=== PATIENT | female | born 1995 | race Caucasian/White ===

== ENCOUNTER 2018-02-13 18:07 | Emergency (ER) | payer SELFPAY ==
--- NOTE | 2018-02-13 19:21 | ULT ---
OB ULTRASOUND: 02/13/18 HISTORY: female with abdominal pain. TECHNIQUE: Multiplanar macias scale and color doppler images were obtained in a transabdominal and transvaginal pe lvic ultrasound. Spectral analysis of the doppler waveforms of the ovaries were performed. FINDINGS: There is a gestational sac within the uterus. This contains a pole with a crown-rump length of 0.74 cm. This estimates the gestational age at 6 weeks, 4 days. A yolk sac is seen. A heart rat e is detected at 122 beats per minute. No free fluid is seen in the pelvis. Both ovaries are normal i n size and appearance and demonstrate normal internal flow. A dominant follicle is seen in the left o vary measuring 2.6 cm in size. IMPRESSION: Single live intrauterine with estimated age of 6 weeks, 4 days. POS: [facility]
== END 2018-02-13 20:55 | disposition left against medical advice (07) ==
LOC: ERS 18:07
DX: O99.89 Other specified diseases and conditions complicating pregnancy, childbirth and the puerperium (principal); R10.32 Left lower quadrant pain; O99.331 Smoking (tobacco) complicating pregnancy, first trimester; Z3A.01 Less than 8 weeks gestation of pregnancy
CPT/HCPCS: 76856

== ENCOUNTER 2018-09-14 15:06 | Inpatient (IN) | payer OTHER ==
[~2018-09-14 15:06] MED LIST: Bupivacaine/Epinephrine 0.25% 30 ML VIAL ONE; Lidocaine 2% MPF 10 ML AMP (For Epidural Use) ONE
[2018-09-14] MEDS: Lactated Ringer's 1,000 ML IV SCH ×2 (15:40→17:19)
[2018-09-14 15:52] VITALS: BMI 30.8
[2018-09-14] MEDS ORDERED: Ibuprofen 800 MG TAB PO PRN (16:04)
[2018-09-14] MEDS ORDERED: Diphenoxylate HCl/Atropine Tablet PO PRN (16:04)
[2018-09-14] MEDS ORDERED: Fentanyl 4 mcg/Bup 0.1% Cadd 100 ML ONE (16:04)
[2018-09-14] MEDS ORDERED: Ondansetron PF 4 MG/2 ML Vial IVP PRN ×4 (16:04→22:24)
[2018-09-14] MEDS ORDERED: Misoprostol 200 MCG TAB PR PRN (16:04)
[2018-09-14] MEDS ORDERED: Butorphanol Tartrate 1 MG/ML VIAL SLOW IVP PRN (16:04)
[2018-09-14] MEDS ORDERED: Lidocaine 1% (PF) 30 ML VIAL SC PRN (16:04)
[2018-09-14] MEDS ORDERED: NS / Oxytocin 40 units/1000ml 1,000 ML IV PRN (16:04)
[2018-09-14] MEDS ORDERED: Carboprost 250 MCG/ML AMP IM PRN (16:04)
[2018-09-14] MEDS ORDERED: Methylergonovine 0.2 MG/ML VIAL IM PRN (16:04)
[2018-09-14] MEDS ORDERED: HYDROcodone/Acetaminophen 5/325 mg Tablet PO PRN (16:04)
[2018-09-14 16:15] LABS: Hemoglobin 14.8 g/dL (12.0-16.0); Mean Corpuscular HGB CONC 33.8 g/dL (32.0-36.0); Mean Corpuscular Hemoglobin 34.8 pg (27.0-31.0); Mean Platelet Volume 10.4 fL (7.4-10.4); Platelet Count 166 thou/uL (130-400); RBC Distribution Width 11.6 % (11.5-14.5); Red Blood Cell (RBC) Count 4.27 mill/uL (4.20-5.40); White Blood Cell (WBC) Count 19.4 thou/uL (4.8-10.8)
[2018-09-14] MEDS ORDERED: NS w/ Oxytocin 10 units 500 ML IV SCH ×2 (16:15)
[2018-09-14] MEDS ORDERED: Ondansetron PF 4 MG/2 ML Vial ONE ×2 (16:18→20:01)
[2018-09-14] MEDS ORDERED: Ketorolac Tromethamine 30 MG/ML VIAL ONE ×2 (16:18→20:01)
[2018-09-14] MEDS ORDERED: Lidocaine 2% MPF 10 ML AMP (For Epidural Use) ONE (16:18)
[2018-09-14] MEDS ORDERED: Dexamethasone 20 MG/5 ML VIAL ONE (16:18)
[2018-09-14] MEDS ORDERED: Naloxone HCl 0.4 mg/ml Vial IVP PRN ×4 (16:47→22:24)
[2018-09-14] MEDS ORDERED: diphenhydrAMINE 50 MG/ML VIAL IVP PRN ×2 (16:47→22:24)
[2018-09-14] MEDS ORDERED: Eucerin (Mineral Oil/Petrolatum,White) 30 gm Jar TOP PRN (16:47)
[2018-09-14] MEDS ORDERED: Acetaminophen 325 MG TAB PO PRN (16:47)
[2018-09-14] MEDS ORDERED: Lactated Ringer's 500 ML IV PRN (16:47)
[2018-09-14] MEDS ORDERED: ePHEDrine/0.9% NaCl/PF SYRINGE 50 mg/10 ml SLOW IVP PRN (16:47)
[2018-09-14] MEDS ORDERED: Promethazine HCl 25 MG/ML VIAL IM PRN ×2 (16:47→22:24)
[2018-09-14 16:51] LABS: HBSAg Index 0.18 S/CO (0-0.99); Hep B Surf Ag Non-Reactive S/CO (NonReactive); Syphilis Antibody Nonreactive (Nonreactive); Syphilis Antibody Index 0.02 S/CO (<1.00 Non-Reactive)
[2018-09-14] MEDS ORDERED: Fentanyl 4 mcg/Bupivacaine 0.1% Cassette 100 ML EPIDURAL SCH (17:00)
[2018-09-14] MEDS ORDERED: Communication Order-Pharmacy FS SCH ×2 (17:00→22:30)
[2018-09-14 17:52] LABS: Creatinine, Urine 362.72 mg/dL (47-110)
[2018-09-14] MEDS ORDERED: CEFAZOLIN 2 GM/50 ML BAG ONE (19:46)
[2018-09-14] MEDS ORDERED: Bicitra 30 ML UDCUP ONE (19:46)
[2018-09-14] MEDS ORDERED: Oxytocin 10 UNITS/ML VIAL ONE (20:01)
[2018-09-14] MEDS ORDERED: Lidocaine 2% 10 ML INJ ONE (20:01)
[2018-09-14] MEDS ORDERED: Dexamethasone 4 mg/ml Vial ONE (20:01)
[2018-09-14] MEDS ORDERED: Midazolam HCl 2 mg/2 ml Vial ONE (20:02)
[2018-09-14] MEDS ORDERED: Fentanyl 100 MCG/2 ML VIAL ONE (20:26)
[2018-09-14] MEDS ORDERED: Morphine PF 1 MG/ML SYR ONE (20:27)
[2018-09-14] MEDS ORDERED: Bupivacaine/Epinephrine 0.5% 10 ML VIAL ONE (20:27)
[2018-09-14] MEDS ORDERED: Bupivacaine PF 0.5% 30 ML VIAL ONE (20:28)
[2018-09-14] MEDS ORDERED: cloNIDine 0.1 MG TAB PO PRN (21:27)
[2018-09-14] MEDS ORDERED: Bisacodyl 10 MG SUPP PR PRN (22:06)
[2018-09-14] MEDS ORDERED: diphenhydrAMINE 25 MG CAP PO PRN (22:06)
[2018-09-14] MEDS ORDERED: Promethazine HCl 25 MG SUPP PR PRN (22:24)
[2018-09-14] MEDS ORDERED: L&D-Morphine 4 MG/ML VIAL SLOW IVP PRN (22:24)
[2018-09-14] MEDS ORDERED: Ketorolac Tromethamine 30 MG/ML VIAL IVP PRN (22:24)
[2018-09-14] MEDS ORDERED: Naloxone HCl 0.4 mg/ml Vial IV PRN (22:24)
[2018-09-14] MEDS ORDERED: HYDROmorphone 2 MG/ML VIAL SLOW IVP PRN (22:24)
[2018-09-14] MEDS ORDERED: Hydrocerin (Eucerin) Cream 120 gm Jar TOP PRN (22:24)
[2018-09-14] MEDS ORDERED: Meperidine HCl/PF 25 MG/ML VIAL SLOW IVP PRN (22:24)
[2018-09-14] MEDS ORDERED: Ondansetron HCl/PF 4 MG/2 ML Vial IVP PRN (22:24)
[2018-09-14] MEDS ORDERED: Ketorolac Tromethamine 30 MG/ML VIAL IVP SCH (22:30)
[2018-09-14] MEDS ORDERED: Docusate Calcium (SURFAK) 240 MG CAP PO SCH (22:30)
[2018-09-14] MEDS ORDERED: Lactated Ringer's 1,000 ML IV SCH (22:30)
[2018-09-14] MEDS ORDERED: Ferrous Sulfate 325 MG TAB PO SCH (22:45)
[2018-09-14] MEDS ORDERED: Morphine 4 MG/ML VIAL SLOW IVP SCH (23:15)
[2018-09-15] MEDS ORDERED: Sodium Chloride 0.9% 10 ML ONE (02:38)
--- NOTE | 2018-09-15 04:13 | DN-2 ---
PROCEDURE NOTE DATE OF PROCEDURE: 09/14/2018 RESIDENT: Luke Smith, PGY-1, PGY-2. ATTENDING SURGEON: Bubba Elizabeth M.D. PROCEDURE: Primary low transverse section. PREOPERATIVE DIAGNOSES: 1. Term intrauterine . 2. History of spontaneous . 3. History of tobacco abuse. 4. Failure to progress. POSTOPERATIVE DIAGNOSES: 1. Term intrauterine . 2. History of spontaneous . 3. History of tobacco abuse. 4. Failure to progress. ANESTHESIA: Spinal. INDICATIONS: The patient is a 23-year-old, G2, P0 female at 38 weeks' gestation, who presented in [facility] and ended up had to go back for as failure to progress as she did not dilate from 8 for over 4 hours. PROCEDURE IN DETAIL: After risks, benefits, and alternatives were explained to the patient, she gave informed consent. Preoperative antibiotics included cefazolin 2 grams IV. The patient was taken to the operating room and spinal anesthesia was initiated. She was placed in a supine position with a left tilt and prepped and draped in the usual sterile fashion. A Pfannenstiel incision was made with a scalpel and carried down to the level of the fascia, which was sharply nicked. The fascial cut wa s extended bilaterally with Willingham scissors. Inferior and superior edges of the cut fascial edges were elevated with Fabricio clamps and the underlying rectus muscles were sharply and bluntly dissected yaneli e. The recti were divided digitally and retracted manually. The peritoneum was entered bluntly and retracted manually. Bladder blade was placed. A low transverse score was made with a scalpel, and t he uterus was entered in the midline with a scalpel. Clear fluid was seen. Hysterotomy was extended manually. The infant was noted to be vertex, but occiput posterior and was easily delivered by fund al pressure. Mouth and nares were bulb suctioned. Cord clamped and cut and grossly normal female in conchita was handed to the awaiting nurse. There was a slight pepito on the left cheek of the infant from entering due to infant being faced up. Cord blood was obtained. Placenta was manually extracted and found to be intact with a 3-vessel cord and will be sent for pathology. The uterus was externalized . , delivered by fundal pressure. Occiput and nuchal cord x1 was noted. intact 3-vessel cord and was sent for pathology. The uterus was externalized and the endometri um was curetted with a dry lap. The bladder blade was replaced, and the uterus was closed with a run marv locking 0 Vicryl. Following this, hemostasis was noted. The abdomen was irrigated with saline and suctioned free of clots. The uterine was internalized and the hysterotomy was again noted to be hemostatic. The peritoneum was closed with 3-0 chromic also before closing the peritoneum, there was noted to be a little bit of a bleed underneath the inferior fascia of the peritoneum. We ended up p utting the use of some cautery, put in a 1-0 chromic suture to sew off the vessel, and in the end, we put some Surgicel on it as well. The fascia was closed with a running nonlocking 0 Vicryl suture, s ubcutaneous tissue was irrigated, and there were no bleeders. The subcutaneous layer was approximate d with 1-0 chromic and then the skin was approximated with reilly and pressure dressing was placed. All counts were correct. Patient tolerated the procedure well and was taken to the recovery room in stable condition. ESTIMATED BLOOD LOSS: 450 mL. COMPLICATIONS: Slight pepito on the left cheek of . SPECIMENS: Cord blood sent to lab for blood type. FINDINGS: Grossly normal female infant with Apgars of 8 and 9. Grossly normal placenta with three-v essel cord discarded. DRAINS: Miller to gravity draining clear urine.
[2018-09-15 06:23] LABS: Hemoglobin 11.4 g/dL (12.0-16.0); Mean Corpuscular HGB CONC 33.1 g/dL (32.0-36.0); Mean Corpuscular Hemoglobin 34.3 pg (27.0-31.0); Mean Platelet Volume 10.7 fL (7.4-10.4); Platelet Count 126 thou/uL (130-400); RBC Distribution Width 11.7 % (11.5-14.5); Red Blood Cell (RBC) Count 3.31 mill/uL (4.20-5.40)
[2018-09-15] MEDS: Ferrous Sulfate 325 MG TAB PO SCH ×2 (08:07→21:10)
[2018-09-15] MEDS: Prenatal Vitamin 1 TAB PO SCH (08:24)
[2018-09-15] MEDS: Docusate Calcium (SURFAK) 240 MG CAP PO SCH ×2 (08:26→21:48)
[2018-09-15] MEDS ORDERED: Ibuprofen 800 MG TAB PO SCH (08:30)
[2018-09-15] MEDS: HYDROcodone/Acetaminophen 5/325 mg Tablet PO PRN ×3 (10:09→18:49)
[2018-09-15] MEDS ORDERED: Meperidine HCl/PF 25 MG/ML VIAL IM PRN (10:30)
[2018-09-15] MEDS ORDERED: HYDROcodone/Acetaminophen 5/325 mg Tablet PO PRN (10:30)
[2018-09-15] MEDS: Ibuprofen 800 MG TAB PO SCH ×2 (14:09→21:48)
[2018-09-15] MEDS: Ondansetron ODT 4 MG TAB PO PRN (22:30)
[2018-09-16] MEDS: HYDROcodone/Acetaminophen 5/325 mg Tablet PO PRN ×4 (04:18→17:48)
[2018-09-16] MEDS: Ibuprofen 800 MG TAB PO SCH ×3 (05:34→21:41)
[2018-09-16] MEDS: Ferrous Sulfate 325 MG TAB PO SCH (07:07)
[2018-09-16] MEDS: Docusate Calcium (SURFAK) 240 MG CAP PO SCH ×2 (07:47→21:41)
[2018-09-16] MEDS: Prenatal Vitamin 1 TAB PO SCH (07:47)
[2018-09-16] MEDS: Simethicone Chewable 80 MG TAB PO PRN ×2 (07:49→17:50)
[2018-09-16] MEDS: Lanolin Ointment 7 GM TUBE TOP SCH (09:25)
[2018-09-16] MEDS: Ondansetron ODT 4 MG TAB PO PRN (21:40)
[2018-09-17] MEDS: HYDROcodone/Acetaminophen 5/325 mg Tablet PO PRN (02:14)
[2018-09-17] MEDS: Ibuprofen 800 MG TAB PO SCH (06:25)
[2018-09-17 08:30] VITALS: BP 134/78; TEMP 97.9
[2018-09-17] MEDS: Ferrous Sulfate 325 MG TAB PO SCH (09:50)
[2018-09-17] MEDS: Lanolin Ointment 7 GM TUBE TOP SCH (09:51)
[2018-09-17] MEDS: Docusate Calcium (SURFAK) 240 MG CAP PO SCH (09:53)
[2018-09-17] MEDS: Prenatal Vitamin 1 TAB PO SCH (09:53)
== END 2018-09-17 10:34 | disposition home or self-care (01) | DRG 788 ==
LOC: L&D/OP 15:06 → L&D 15:34 → 3SE 23:27
PROVIDERS: ADMIT Family Medicine; ATTEND Family Medicine
PROC: 10D00Z1 Extraction of Products of Conception, Low, Open Approach (ICD-10-PCS; principal; 2018-09-15)
PROC: 4A0HXCZ Measurement of Products of Conception, Cardiac Rate, External Approach (ICD-10-PCS; 2018-09-15)
DX: O62.1 Secondary uterine inertia (principal); O99.334 Smoking (tobacco) complicating childbirth; F17.211 Nicotine dependence, cigarettes, in remission; Z3A.38 38 weeks gestation of pregnancy; Z37.0 Single live birth
CPT/HCPCS: 36415; 51702; 82570; 84156; 85027; 86780; 86850; 86900; 86901; 87340; 88307; J1100; J1885; J2001; J2250; J2270; J2274; J2405; J2590; J3010; J3490; Q0162; S0020